=== PATIENT | female | born 1990 | race African-American/Black ===

== ENCOUNTER 2022-09-01 17:46 | Emergency (ER) | payer OTHER, SELFPAY ==
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
[2022-09-01 18:09] VITALS: BP 130/68; PULSE 81; RESP 16; TEMP 37; O2SAT 100
== END 2022-09-01 18:42 | disposition short-term general hospital (02) ==
PROVIDERS: Emergency Provider Nurse Practitioner
DX: M54.2 Cervicalgia (principal); L23.7 Allergic contact dermatitis due to plants, except food
CPT/HCPCS: 99202; G0463

== ENCOUNTER 2022-09-01 19:13 | Emergency (ER) | payer OTHER, SELFPAY ==
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
[2022-09-01 19:15] VITALS: BP 134/81; PULSE 82; RESP 16; TEMP 36.6; O2SAT 100
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
[2022-09-01] MEDS: predniSONE 20 MG TABLET 60 MG PO (20:33)
[2022-09-01] MEDS: CYCLOBENZAPRINE HCL 10 MG TABLET PO (20:33)
== END 2022-09-01 21:03 | disposition home or self-care (01) ==
PROVIDERS: Emergency Provider Physician Assistant
DX: S16.1XXA Strain of muscle, fascia and tendon at neck level, initial encounter (principal); Z32.01 Encounter for pregnancy test, result positive; V87.7XXA Person injured in collision between other specified motor vehicles (traffic), initial encounter; Y99.0 Civilian activity done for income or pay
CPT/HCPCS: 72125; 81025; 99284; A9270; J7512